=== PATIENT | male | born 1975 | race Caucasian/White ===

== ENCOUNTER 2024-08-20 16:23 | Emergency (ER) | payer OTHER ==
[2024-08-20 16:55] VITALS: PULSE 66; RESP 18; BMI 23.3
[2024-08-20] MEDS ORDERED: ACETAMINOPHEN INJECTION 100 ML ONE (18:23)
[2024-08-20 19:01] LABS: HEMATOCRIT 44.7 % (35.4-49); HEMOGLOBIN 14.8 GM/dL (11.7-16.9); MCH 28.3 pg (25.7-33.7); MCHC 33.2 g/dl (32.0-35.9); MEAN CELL VOLUME 85.2 fl (80-96); MEAN PLT VOLUME 8.7 fl (7.5-11.1); PLATELET COUNT 243 10^3/uL (134-434); RBC 5.24 M/mm3 (4.00-5.60); RDW 13.5 % (11.9-15.9); WHITE BLOOD COUNT 6.9 K/mm3 (4.0-10.0)
[2024-08-20] MEDS: LACTATED RINGERS SOLUTION 1000 ML INFUS.BAG IV ONE (19:01)
[2024-08-20] MEDS: ACETAMINOPHEN 1000 MG/100 ML BAG IVPB ONE (19:01)
[2024-08-20 19:30] LABS: POTASSIUM 4.2 mmol/L (3.5-5.1)
[2024-08-20 19:32] LABS: ALBUMIN 4.6 g/dl (3.4-5.0); BLOOD UREA NITROGEN 16.4 mg/dL (7-18); CALCIUM 9.8 mg/dL (8.5-10.1)
[2024-08-20 19:36] LABS: CREATININE 0.9 mg/dL (0.55-1.3)
[2024-08-20 19:41] LABS: BILIRUBIN,TOTAL 0.6 mg/dL (0.2-1); TOT PROT 8.1 g/dl (6.4-8.2)
[2024-08-20] MEDS: METOCLOPRAMIDE HCL INJECTION 10 MG/2 ML VIAL IVPB ONE (21:23)
[2024-08-21 00:51] VITALS: BP 154/102; TEMP 97.8
== END 2024-08-21 03:24 | disposition home or self-care (01) ==
LOC: JER 16:23
PROC: 3E033NZ Introduction of Analgesics, Hypnotics, Sedatives into Peripheral Vein, Percutaneous Approach (ICD-10-PCS; principal; 2024-08-20)
DX: R07.2 Precordial pain (principal); R20.2 Paresthesia of skin; R00.2 Palpitations; R51.9 Headache, unspecified; H53.8 Other visual disturbances; R05.9 Cough, unspecified; R50.9 Fever, unspecified; R20.0 Anesthesia of skin; Z20.822 Contact with and (suspected) exposure to COVID-19
CPT/HCPCS: 0241U-QW; 36415; 71046-TC-FY; 71275-TC; 80053; 84484; 85027; 85651; 86140; 87040; 93005; 93010; 93970-TC; 99285-25; J0131; Q9967